=== PATIENT | male | born 1955 | race Caucasian/White ===

== ENCOUNTER 2024-02-09 15:13 | Day surgery (SDC) | payer MEDICARE, OTHER ==
--- NOTE | 2024-02-09 17:12 | XRAY ---
Indication: Left knee injection. Intraoperative fluoroscopy provided for 4 seconds. Single digital spot image submitted for interpretation demonstrates needle tip projecting over the left femur intercondylar notch. Small amount of contrast injected for needle tip placement. Correlate with intraoperative findings/report.
--- NOTE | 2024-02-09 17:12 | XRAY ---
Indication: Right knee injection. Intraoperative fluoroscopy provided for 11 seconds. Single digital spot image submitted for interpretation demonstrates needle tip projecting over the right femur intercondylar notch. Small amount of contrast injected for needle tip placement. Correlate with intraoperative findings/report.
--- NOTE | 2024-02-09 20:58 | XRAY ---
11 seconds of fluoroscopy used in surgery for a right intra-articular knee injection.
--- NOTE | 2024-02-09 20:58 | XRAY ---
4 seconds of fluoroscopy used in surgery for a left intra-articular knee injection.
== END 2024-02-09 17:10 | disposition home or self-care (01) ==
LOC: SDC-PAIN 15:13
PROVIDERS: ATTEND Psychiatry & Neurology Pain Medicine
DX: M17.0 Bilateral primary osteoarthritis of knee (principal); E11.9 Type 2 diabetes mellitus without complications
CPT/HCPCS: 20610; 73560; 77002; 82947; Q9966

== ENCOUNTER 2024-07-19 15:24 | Day surgery (SDC) | payer MEDICARE, OTHER ==
[2024-07-19] MEDS ORDERED: BUPIVACAINE 0.5% VIAL IJ ONE (15:25)
[2024-07-19] MEDS ORDERED: LIDOCAINE HCL 1% AMPUL 5 ML IJ ONE (15:25)
[2024-07-19] MEDS ORDERED: Depo-Medrol 40 MG/ML IM ONE (15:25)
--- NOTE | 2024-07-19 18:38 | XRAY ---
Indication: Left shoulder and subacromial bursa injection. Intraoperative fluoroscopy provided for 24 seconds. 4 digital spot images submitted for interpretation demonstrates needle tip projecting over left glenohumeral joint superiorly. Second needle tip subacromial. Small amount of contrast injected for needle tip placement. Correlate with intraoperative findings/report.
--- NOTE | 2024-07-19 18:38 | XRAY ---
Indication: Right shoulder and subacromial bursa injection. Intraoperative fluoroscopy provided for 18 seconds. 4 digital spot images submitted for interpretation demonstrates needle tip projecting over right glenohumeral joint superiorly. Second needle tip subacromial. Small amount of contrast injected for needle tip placement. Correlate with intraoperative findings/report.
--- NOTE | 2024-07-20 09:21 | XRAY ---
18 seconds of fluoroscopy was used in surgery for a right intra-articular shoulder and subacromial bursa injection.
--- NOTE | 2024-07-20 09:22 | XRAY ---
24 seconds of fluoroscopy was used in surgery for a left intra-articular shoulder and subacromial bursa injection.
== END 2024-07-19 17:57 | disposition home or self-care (01) ==
LOC: SDC-PAIN 15:24
PROVIDERS: ATTEND Psychiatry & Neurology Pain Medicine
DX: M19.012 Primary osteoarthritis, left shoulder (principal); M19.011 Primary osteoarthritis, right shoulder; E11.9 Type 2 diabetes mellitus without complications
CPT/HCPCS: 20610; 73030; 77002; 82947; Q9966

== ENCOUNTER 2024-09-06 09:11 | Day surgery (SDC) | payer MEDICARE, OTHER ==
--- NOTE | 2024-09-06 11:44 | XRAY ---
Indication: Right knee injection. Intraoperative fluoroscopy provided for 19 seconds. 3 digital spot images submitted for interpretation demonstrates needle tip projecting over right femur intercondylar notch. Small amount of contrast injected for needle tip placement. Correlate with intraoperative findings/report.
--- NOTE | 2024-09-06 11:44 | XRAY ---
Indication: Left knee injection. Intraoperative fluoroscopy provided for 10 seconds. Single digital spot images submitted for interpretation demonstrates needle tip projecting over left femur intercondylar notch. Small amount of contrast injected for needle tip placement. Correlate with intraoperative findings/report.
--- NOTE | 2024-09-06 11:46 | XRAY ---
19 seconds of fluoroscopy was used in surgery for a right intra-articular knee injection.
--- NOTE | 2024-09-06 11:46 | XRAY ---
10 seconds of fluoroscopy was used in surgery for a left intra-articular knee injection.
== END 2024-09-06 11:23 | disposition home or self-care (01) ==
LOC: SDC-PAIN 09:11
PROVIDERS: ATTEND Psychiatry & Neurology Pain Medicine
DX: M17.0 Bilateral primary osteoarthritis of knee (principal); E11.9 Type 2 diabetes mellitus without complications
CPT/HCPCS: 20610; 73560; 77002; 82947; Q9966

== ENCOUNTER 2024-09-13 15:09 | Day surgery (SDC) | payer MEDICARE, OTHER ==
[2024-09-13] MEDS ORDERED: LIDOCAINE HCL 1% AMPUL 5 ML IJ ONE (15:10)
[2024-09-13] MEDS ORDERED: GELSYN-3 IU ONE (15:10)
--- NOTE | 2024-09-13 21:18 | XRAY ---
Indication: Left knee injection. Intraoperative fluoroscopy provided for 5 seconds. Single digital spot images submitted for interpretation demonstrates needle tip projecting over left femur intercondylar notch. Small amount of contrast injected for needle tip placement. Correlate with intraoperative findings/report.
--- NOTE | 2024-09-13 21:20 | XRAY ---
Indication: Right knee injection. Intraoperative fluoroscopy provided for 8 seconds. 2 digital spot image submitted for interpretation demonstrates needle tip projecting over right femur intercondylar notch. Small amount of contrast injected for needle tip placement. Correlate with intraoperative findings/report.
--- NOTE | 2024-09-13 21:22 | XRAY ---
5 seconds of fluoroscopy were used in surgery for a left intra-articular knee injection.
--- NOTE | 2024-09-13 21:22 | XRAY ---
8 seconds of fluoroscopy were used in surgery for a right intra-articular knee injection.
== END 2024-09-13 17:00 | disposition home or self-care (01) ==
LOC: SDC-PAIN 15:09
PROVIDERS: ATTEND Psychiatry & Neurology Pain Medicine
DX: M17.0 Bilateral primary osteoarthritis of knee (principal); E11.9 Type 2 diabetes mellitus without complications
CPT/HCPCS: 20610; 73560; 77002; 82947; J7328; Q9966

== ENCOUNTER 2024-09-20 15:07 | Day surgery (SDC) | payer MEDICARE, OTHER ==
[2024-09-20] MEDS ORDERED: LIDOCAINE HCL 1% AMPUL 5 ML IJ ONE (15:08)
--- NOTE | 2024-09-20 18:57 | XRAY ---
Indication: Left knee injection. Intraoperative fluoroscopy provided for 7 seconds. Single digital spot image submitted for interpretation demonstrates needle tip projecting over left femur intercondylar notch. Small amount of contrast injected for needle tip. Correlate with intraoperative findings/report.
--- NOTE | 2024-09-20 18:58 | XRAY ---
Indication: Right knee injection. Intraoperative fluoroscopy provided for 6 seconds. Single digital spot image submitted for interpretation demonstrates needle tip projecting over right femur intercondylar notch. Small amount of contrast injected for needle tip. Correlate with intraoperative findings/report.
--- NOTE | 2024-09-20 19:12 | XRAY ---
6 seconds of fluoroscopy used in surgery for a right intra-articular knee injection.
--- NOTE | 2024-09-20 19:12 | XRAY ---
7 seconds of fluoroscopy used in surgery for a left intra-articular knee injection.
== END 2024-09-20 17:20 ==
LOC: SDC-PAIN 15:07
PROVIDERS: ATTEND Psychiatry & Neurology Pain Medicine
DX: M17.0 Bilateral primary osteoarthritis of knee (principal); E11.9 Type 2 diabetes mellitus without complications
CPT/HCPCS: 20610; 73560; 77002; 82947; Q9966